=== PATIENT | female | born 1965 | race African-American/Black ===

== ENCOUNTER → 2021-03-27 02:26 | Outpatient (CLI) | payer OTHER, SELFPAY ==
[2021-03-27 19:43] LABS: SARS-CoV-2 RNA PCR Negative
== END ==
PROVIDERS: PCP Family Medicine; Visit Provider Obstetrics & Gynecology
DX: Z01.812 Encounter for preprocedural laboratory examination (principal); Z20.822 Contact with and (suspected) exposure to COVID-19
CPT/HCPCS: C9803; U0003; U0005

== ENCOUNTER 2021-03-29 14:51 | Outpatient (CLI) | payer OTHER, SELFPAY ==
--- NOTE | 2021-03-29 14:30 | ECG_ITS ---
Measurements Intervals [place] Rate: 66 P: 53 NM: 115 QRS: 26 QRSD: 73 T: 20 QT: 368 QTc: 386 Interpretive Statements SINUS RHYTHM WITH SHORT NM INTERVAL BASELINE ARTIFACT- I, III, AVL BORDERLINE ECG Electronically Signed On 03-29-2021 18:49:30 CDT by Kashif Deluna D.O.
== END 2021-03-29 14:52 | disposition home or self-care (01) ==
PROVIDERS: PCP Family Medicine; Visit Provider Obstetrics & Gynecology
DX: Z01.818 Encounter for other preprocedural examination (principal); E78.5 Hyperlipidemia, unspecified
CPT/HCPCS: 93005

== ENCOUNTER 2021-03-30 01:22 | Day surgery (SDC) | payer OTHER, SELFPAY ==
[2021-03-19 10:17] VITALS: BMI 33.9
--- NOTE | 2021-03-29 10:10 | WPDANESEPPF ---
Anes - Initial Pre Proc Eval Procedure: Operation Date: 03/30/21 08:30 Proposed Procedures p Hysteroscopy Dilation and Curettage - Gina Navas MD Date/Time: 03/29/21 10:10 Surgeon: Gina Navas MD Pre Op Diagnosis: postmenopausal bleeding Patient Data Age: 56 Gender: F Height: 1.65 m Weight: 92.5 kg Allergies Allergy/AdvReac Type Severity Reaction Status Date / Time No Known Allergies Allergy Mild Verified 03/30/21 07:10 Home Medications Medication Instructions Recorded Confirmed Type L. acidophilus-L. rhamnosus 1 cap PO DAILY 03/19/21 03/30/21 History [Probiotic] atorvastatin 20 mg PO HS 03/19/21 03/30/21 History baricitinib [Olumiant] 2 mg PO DAILY 03/19/21 03/30/21 History biotin 400 mcg PO DAILY 03/19/21 03/30/21 History celecoxib 200 mg PO DAILY 03/19/21 03/30/21 History cholecalciferol (vitamin D3) 50 mcg PO DAILY 03/19/21 03/30/21 History [Vitamin D3] fexofenadine 180 mg PO DAILY 03/19/21 03/30/21 History folic acid 0.4 mg PO DAILY 03/19/21 03/30/21 History leflunomide 20 mg PO DAILY 03/19/21 03/30/21 History mv-mn-iron vco-HX-gntos7,6,9#3 1 cap PO DAILY 03/19/21 03/30/21 History [Women's Multi] oxybutynin chloride 5 mg PO BID 03/19/21 03/30/21 History propranolol 80 mg PO DAILY 03/19/21 03/30/21 History topiramate 100 mg PO HS 03/19/21 03/30/21 History vitamin P72-jqaif acid 1 tablet PO DAILY 03/19/21 03/30/21 History vitamin B6-vitamin E-magnesium 1 tablet PO DAILY 03/19/21 03/30/21 History Patient hx anesthesia problems: none Family hx anesthesia problems: none PMFSH Past Medical History Medical History (Updated 03/29/21 @ 10:12 by Oneal Leary MD) Depression Hypercholesterolemia Migraine Obesity CONRADO on CPAP Osteoarthritis Rheumatoid arthritis Social History Social History Smoking status: Former smoker Additional smoking assessment comments: ON OCCASION WHEN DRINKING IN PAST MANY YRS AGO Alcohol intake: never Substance use: never Substance use type: does not use Living arrangements: alone Spiritual care concerns: No Anes - Eval Final PreProcedure Day of Procedure 03/29/21 10:10 Patient weight: obese Heart: regular rate and rhythm Lungs: clear to auscultation and normal air movement Airway: Mallampati scale class II Neurological: alert and oriented Last oral intake: >/= 8 hours ASA classification: III Emergent: no Anesthetic plan: proceed Anesthesia type and monitoring: general GIVS and LMA Informed Consent: The patient's anesthetic plan and its attendant risks and benefits were discussed with the patient/family/POA. Questions were solicited and answers provided to the satisfaction of the patient/family/POA.
[2021-03-30] MEDS: LACTATED RINGERS 1,000 ML 30 ML IV CONT (06:55)
[2021-03-30] MEDS: ACETAMINOPHEN 500 MG TABLET 1000 MG PO (06:57)
--- NOTE | 2021-03-30 07:11 | WPDHPUPDATE1 ---
History and Physical Update Update Date/Time: 03/30/21 07:11 History and Physical has been reviewed, including an updated exam of the patient. There are NO changes in the patient's condition. Risks, benefits, and alternatives have been discussed and questions answered. Patient agrees to proceed with procedure.
[2021-03-30 07:19] VITALS: BP 123/77; PULSE 63; RESP 18; TEMP 35.9; O2SAT 100
[2021-03-30 09:17] VITALS: BP 121/80; PULSE 90; RESP 12; O2SAT 100
--- NOTE | 2021-03-30 09:33 | PM.PROC ---
Procedure Note - Detailed Date of procedure: 03/30/21 Pre-op diagnosis: postmenopausal bleeding Procedure performed: Diagnostic hysteroscopy Description of procedure: Patient was taken the operating room. She has prepped and draped in the dorsal lithotomy position. A speculum was placed in the vagina. Cervix grasped with a tenaculum. The hysteroscope was inserted. Attempted to find a open intrauterine space. There was dense scar tissue throughout the uterus. The length the uterus was a fully scarred endometrial cavity. Hysteroscope was withdrawn. There were no clear areas of normal endometrium. The tenaculum was removed. The speculum was removed. The patient tolerated the procedure well. She was taken cover room stable condition. Sponge lap needle counts were correct x2. Anesthesia: MAC Surgeon: Gina Navas MD Estimated blood loss (mL): 5 Drains: No Packing: No Pathology: none sent Complications: No immediate complications Condition: stable Findings: Normal-appearing vulva, vagina, and cervix. The endocervix appeared normal. The endometrium was fully scarred and obliterated.
[2021-03-30 09:40] VITALS: BP 136/74; PULSE 69; RESP 16; O2SAT 97
[2021-03-30] MEDS: oxyCODONE HCL (*CRX) 5 MG TAB IR PO (09:55)
[2021-03-30 10:00] VITALS: BP 139/76; PULSE 64; RESP 16
[2021-03-30 10:10] VITALS: BP 125/86; PULSE 60; RESP 16
== END 2021-03-30 10:50 | disposition home or self-care (01) ==
PROVIDERS: PCP Family Medicine; Visit Provider Obstetrics & Gynecology
PROC: 0U5B8ZZ Destruction of Endometrium, Via Natural or Artificial Opening Endoscopic (ICD-10-PCS; CPT 58563; principal; 2021-03-30 08:30)
DX: N95.0 Postmenopausal bleeding (principal); E78.00 Pure hypercholesterolemia, unspecified; G47.33 Obstructive sleep apnea (adult) (pediatric); M06.9 Rheumatoid arthritis, unspecified; M19.90 Unspecified osteoarthritis, unspecified site; F32.9 Major depressive disorder, single episode, unspecified; E66.9 Obesity, unspecified; Z68.34 Body mass index [BMI] 34.0-34.9, adult
CPT/HCPCS: 58555; A9270; J2250; J2704; J3010; J7030; J7120

== ENCOUNTER 2021-04-13 10:33 | Outpatient (CLI) | payer OTHER, SELFPAY ==
--- NOTE | ~2021-04-13 | MM_ITS ---
EXAMINATION: MM screening [facility] BI w abdi HISTORY: Screening TECHNIQUE: Craniocaudal and mediolateral oblique 3-D tomosynthesis images were obtained and synthetic 2-D images were generated. CAD analysis was submitted and interpreted. COMPARISON: No prior mammogram is available for comparison at this institution. BREAST PARENCHYMAL COMPOSITION: Breast composed of scattered areas of fibroglandular density. FINDINGS: There are multiple masses of the right breast including the upper outer quadrant in the low er inner quadrant as well as the left breast in the upper outer quadrant. IMPRESSION: 1. Bilateral breast masses. 2. Comparison to prior outside mammograms recommended to assess stability. BI-RADS Category 0: Incomplete: Needs additional imaging evaluation. Reviewed, dictated and finalized at location A.
== END 2021-04-13 10:34 | disposition home or self-care (01) ==
PROVIDERS: PCP Family Medicine; Visit Provider Nurse Practitioner Obstetrics & Gynecology
DX: Z12.31 Encounter for screening mammogram for malignant neoplasm of breast (principal)
CPT/HCPCS: 77063; 77067

== ENCOUNTER 2022-11-17 17:33 | Outpatient (CLI) | payer MEDICARE, MEDICAID, SELFPAY ==
--- NOTE | ~2022-11-17 | MM_ITS ---
EXAMINATION: MM screening [facility] BI w abdi HISTORY: Screening mammogram, family history of breast cancer in her mother. TECHNIQUE: Craniocaudal and mediolateral oblique 3-D tomosynthesis images were obtained and synthetic 2-D images were generated. CAD analysis was submitted and interpreted. COMPARISON: 04/13/2021, 10/24/2017 BREAST PARENCHYMAL COMPOSITION: There are scattered areas of fibroglandular density. FINDINGS: Again noted are bilateral breast masses which are stable to decreased in size 2017 comparis on. No suspicious mass, calcification, or architectural distortion are identified in either breast to suggest malignancy. There has been no suspicious interval change. IMPRESSION: 1. No mammographic evidence of malignancy. 2. Recommend routine screening mammography in one year. BI-RADS Category 2: Benign finding(s). Reviewed, dictated and finalized at location A. E [employer]
== END 2022-11-17 17:34 | disposition home or self-care (01) ==
PROVIDERS: PCP Family Medicine; Visit Provider Nurse Practitioner Obstetrics & Gynecology
DX: Z12.31 Encounter for screening mammogram for malignant neoplasm of breast (principal)
CPT/HCPCS: 77063; 77067

== ENCOUNTER 2024-03-21 13:25 | Outpatient (CLI) | payer MEDICARE, SELFPAY ==
--- NOTE | ~2024-03-21 | MM_ITS ---
EXAMINATION: MM screening [facility] BI w abdi HISTORY: Screening mammogram TECHNIQUE: Craniocaudal and mediolateral oblique 3-D tomosynthesis images were obtained and synthetic 2-D images were generated. CAD analysis was submitted and interpreted. COMPARISON: 11/17/2022, 04/13/2021 bilateral screening mammogram examinations BREAST PARENCHYMAL COMPOSITION: There are scattered areas of fibroglandular density. FINDINGS: Stable occasional bilateral circumscribed breast masses. There is no evidence of suspicious mass, calcification, or architectural distortion to suggest malignancy in either breast. There has b een no suspicious interval change. IMPRESSION: 1. No mammographic evidence of malignancy. 2. Recommend routine screening mammography in one year. BI-RADS Category 2: Benign finding(s). Reviewed, dictated and finalized at location B.
== END 2024-03-21 13:26 | disposition home or self-care (01) ==
PROVIDERS: PCP Family Medicine; Visit Provider Nurse Practitioner Obstetrics & Gynecology
DX: Z12.31 Encounter for screening mammogram for malignant neoplasm of breast (principal)
CPT/HCPCS: 77063; 77067

== ENCOUNTER 2025-04-10 15:35 | Outpatient (CLI) | payer MEDICARE, SELFPAY ==
--- NOTE | ~2025-04-10 | MM_ITS ---
EXAMINATION: MM screening silverio BI w abdi HISTORY: Screening TECHNIQUE: Craniocaudal and mediolateral oblique 3-D tomosynthesis images were obtained and synthetic 2-D images were generated. CAD analysis was submitted and interpreted. COMPARISON: Comparison to multiple prior studies sequentially, with oldest reviewed study dated 12/2016. BREAST PARENCHYMAL COMPOSITION: Not dense: There are scattered areas of fibroglandular density. FINDINGS: There is no evidence of suspicious mass, calcification, or architectural distortion to sugg est malignancy in either breast. There has been no suspicious interval change. IMPRESSION: 1. No mammographic evidence of malignancy. 2. Recommend routine screening mammography in one year. BI-RADS Category 1: Negative Reviewed, dictated and finalized at location A.
--- OUTSIDE RECORDS SUMMARY | 2025-04-10 15:41 | XMS_ITS | Data Portability ---
Author Organization [place] [facility] [employer], Main Office Address [address] [place] [address] Assessment Encounter Date Assessment Date Assessment LastModified by Organization Details LastModified Time 03/20/2024 03/20/2024 mammogram tomorrow had bone marrow biopsy 03/15/24 considering stimulator for back [email or web address] Not available 03/20/2024 12:25:58 Plan of Treatment Reminders Order Date Submit Date Provider Last Modified By Organization Details Last Modified Time Details Appointments None recorded. Lab hepatic function panel, serum 2023 024 [facility] (Lab), [address] [place], [address], 18:44:44 Referral None recorded. Procedures colonoscopy screening (PROC) - *Please call pt to schedule* 2023 024 [email or web address] 256 [facility] [place] - Gastroenterol ogy, [address] [facility], [facility] [address], [address], 4 09:37:06 Surgeries None recorded. Imaging DEXA - *Please call pt to schedule* 2023 [facility] [address] [place] [address] Radiology-Dennise kristin, [address] [place], [address], 4 09:01:11 Medication Orders Zepbound 2.5 mg/0.5 mL subcutaneou s pen injector 2023 024 [facility], [address] [place] [address] 2011, [place], [address], 14:50:25 Patient TargetsNo targets recorded. Patient Instructions Encounter Date Encounter Id Patient Instructions Last Modified By Organization Details Last Modified Time 03/20/[id number] [facility] Plan and Screening Recommendations Advance Directives - Do you have one? Advance Directives - Do we have your advance directive on file in your health record? Primary Prevention/Interven tion (prevents or decreases the chance of common diseases from occurring) Smoking Risk: Alcohol Misuse Screening: Weight: Physical activity: Nutrition: Fall Risk (screened today): Vaccines Pneumococcal: Influenza: Your next one in the fall of this year Chronic Disease Risks Stroke: Active diagnosis, Continue current treatment plan Heart Attack: Active diagnosis, Continue current treatment plan Clogging of the Arteries: Active diagnosis, Continue current treatment plan Diabetes: Active diagnosis, Continue current treatment plan Secondary Prevention/Interven tion (detects treatable diseases before they may cause symptoms, disability, or ) Breast Cancer Screening with mammogram: Cervical/Uterine/Ov mayank Cancer Screening: Osteoporosis Screening: Date Screening Last Performed: Colon Cancer Screening: Date Screening Last Performed: Eye Disease Screening: Ordered Recommended today Recommended today, but you have declined No Eye exam necessary Your next exam in: Dementia Risk: Depression Screening: Active diagnosis, Continue current treatment plan [id number] Not available 03/31/2024 12:44:15 Reason for Referral None Reported. Results Created Date Observation Date Name Description Value Unit Range Abnormal Flag Note LastModifiedBy Organization Detail LastModifiedTime 03/21/20 24 03/21/2024 MAMMO , scree devaughn, digit al, bilat eral No observ ation record ed. [email or web address] [address], [place], [address], 03/30/2024 19:53:30 Result Notes None recorded. Problems Name Problem SNOMED Code Status Onset Date Resolution Date Notes Provider Name and Address Organization Details Recorded Time Deviated nasal septum 618984065 Active 2021 Not Available [facility] 3 19:45:18 Neuralgia 63167829 Active 2019 Not Available [facility] 3 19:45:18 Localized, primary osteoarthriti s of the hand 640627235 Active Not Available [facility] 3 19:45:18 Fibromyalgia 407312326 Active 2019 Not Available [facility] 3 19:45:18 Congenital pes planus 30968467 Active 2019 Not Available [facility] 3 19:45:18 Headache 73477152 Active 2019 Not Available [facility] 3 19:45:18 Paresthesia of foot 692850961 Active 2020 Not Available [facility] 3 19:45:18 Localized, primary osteoarthriti s of the wrist 850459878 Active Not Available [facility] 3 19:45:18 Chronic maxillary sinusitis 91188083 Active 2021 Not Available [facility] 3 19:45:18 Migraine 56763995 Active 2017 Not Available [facility] 3 19:45:18 Vertigo 534598929 Active 2021 Not Available [facility] 3 19:45:19 Chronic sinusitis 75346082 Active 2021 Not Available [facility] 3 19:45:19 Onychomycosis of toenails 064011434 Active 2019 Not Available [facility] 3 19:45:19 Chronic frontal sinusitis 10680498 Active 2021 Not Available [facility] 3 19:45:19 Rheumatoid arthritis 39100524 Active 2019 Not Available [facility] 3 19:45:19 Chronic ethmoidal sinusitis 63153619 Active 2021 Not Available [facility] 3 19:45:19 Posterior rhinorrhea 04518522 Active 2021 Not Available [facility] 3 19:45:19 Candidiasis of mouth 82734715 Active 2021 Not Available [facility] 3 19:45:19 Essential hypertension 91677859 Active 2022 Ethel Pinedo MD [address], [address], [place], [address] , [facility] [place] [facility] 3 12:52:35 Fatigue 36767393 Active 2022 Ethel Pinedo MD [address], [address], [place], [address] , [facility] [place] [facility] 3 12:52:41 Hyperlipidemi a 27653015 Active 2022 Ethel Pinedo MD [address], [address], [place], [address] , [facility] [place] [facility] 3 12:55:27 Serum creatinine above reference range 951083581 Active 2022 Ethel Pinedo MD [address], [address], [place], [address] , [facility] [place] [facility] 3 12:29:02 Thyroid function tests abnormal 584066650 Active 2022 Ethel Pinedo MD [address], [address], [place], [address] , [facility] [place] [facility] 3 12:29:10 Primary fibromyalgia syndrome 34835769 Active 2022 Ethel Pinedo MD [address], [address], [place], [address] , [facility] [place] [facility] 3 12:31:28 Hyperthyroidi sm 51858542 Active 2022 Ethel Pinedo MD [address], [address], [place], [address] , [facility] [place] [facility] 3 15:55:20 Psoriasis 6571286 Active 2022 Ethel Pinedo MD [address], [address], [place], [address] , [place] [facility] 3 12:42:43 Serum iron above reference range 105558137 Active 2022 Ethel Pinedo MD [address], [address], [place], [address] , [facility] 3 08:02:19 Upper respiratory infection 23719238 Active 2022 GONZALO Gale [address], [address], [place], [address] , [facility] 3 13:42:30 Acute sinusitis 16368139 Active 2023 Ethel Pinedo MD [address], [address], [place], [address] , [facility] 4 11:36:38 Obstructive sleep apnea syndrome 62733788 Active 2023 Ethel Pinedo MD [address], [address], [place], [address] , [facility] 4 12:16:13 Monoclonal gammopathy of uncertain significance 397163605 Active 2023 Ethel Pinedo MD [address], [address], [place], [address] , [facility] 4 12:25:16 Abdominal pain 95351406 Active 2023 KO Orellana [address], [place] [address], [place], [address] , [facility] 4 16:11:00 Notes:hepatitis C Problem Notes None recorded. Procedures Surgical History Date Name Laterality Status Provider Name and Address Organization Details Recorded Time 03/20/20 24 Medicare Wellness CPT Code, subsequent completed Ethel Pinedo MD [address], [address], [place], [address], [facility] 03/20/2024 12:32:04 02/29/20 22 ENDOSCOPY, NASAL/SINUS, WITH FRONTAL SINUS EXPLORATION (SURG) completed Not Available [facility] 01/11/2023 19:46:22 Imaging Results None recorded. Procedure Notes None recorded. Medical Equipment None Reported. Allergies No known drug allergies Medications Name Sig Start Date Stop Date Status Note LastModified by Organization Details LastModified Time cyclobenzap rine 10 mg tablet TK 1 T PO Q 8 H 04/06 completed Not Available Not Available Not Available amoxicillin 500 mg capsule 11/26 completed Not Available Not Available Not Available furosemide 40 mg tablet TAKE 1 OR 2 TABLETS BY MOUTH EVERY DAY NEEDED FOR EDEMA 11/23 completed Not Available Not Available Not Available betamethaso ne valerate 0.1 % topical ointment APPLY TO AFFECTED AREA TWICE A DAY active Not Available Not Available No t Available atorvastati n 80 mg tablet Take 1 tablet by mouth every night at bedtime. 2024 active Not Available Not Available Not Avai lable nystatin 100,000 unit/mL oral suspension active Not Available Not Available N ot Available prednisone 10 mg tablet TAKE 4 TABS DAILY X 5 DAYS, DECREASE BY 1 TABLET EVERY 5 DAYS, UNTIL DAY 21, WHEN YOU TAKE 1/2 TAB 06/14 completed Not Available Not Available Not Available propranolol 80 mg tablet 1 po qday 2024 active Not Available Not Available Not Avai lable paroxetine 10 mg tablet TAKE 1 TABLET BY MOUTH EVERY DAY 11/23 completed Not Available Not Available Not Available atorvastati n 20 mg tablet TAKE 1 TABLET BY MOUTH AT BEDTIME 11/26 completed Not Available Not Available Not Available sulfasalazi ne 500 mg tablet 06/14 completed Not Available Not Available Not Available azithromyci n 250 mg tablet TAKE 2 TABLETS BY MOUTH TODAY, THEN TAKE 1 TABLET DAILY FOR 4 DAYS DIRECTED active Not Available Not Available No t Available fluconazole 150 mg tablet TAKE 1 TABLET BY MOUTH EVERY DAY FOR 4 DAYS 11/15 completed Not Available Not Available Not Available benzonatate 200 mg capsule Take 1 capsule 3 times a day by oral route as needed. 08/22 completed Not Available Not Available Not Available sumatriptan 100 mg tablet TAKE 1/2 (ONE HALF) TO 1 TABLET BY MOUTH NEEDED FOR MIGRAINE MAX 1 PER 24 HRS active Not Available Not Available No t Available hydrocodone 5 mg-acetamin ophen 325 mg tablet TAKE 1 TABLET BY MOUTH EVERY 6 HOURS NEEDED FOR PAIN 11/26 completed Not Available Not Available Not Available meloxicam 15 mg tablet 06/14 completed Not Available Not Available Not Available metronidazo le 0.75 % (37.5 mg/5 gram) vaginal gel 09/14 completed Not Available Not Available Not Available ondansetron HCl 4 mg tablet 11/15 completed Not Available Not Available Not Available prednisone 20 mg tablet TAKE 2 TABLETS BY MOUTH EVERY DAY FOR 5 DAYS active Not Available Not Available No t Available dexamethaso ne 6 mg tablet active Not Available Not Available Not Available prednisone 5 mg tablet Take 1 tablet every day by oral route. active Not Available Not Available No t Available penicillin V potassium 500 mg tablet TAKE 1 TABLET BY MOUTH 4 TIMES A DAY FOR 7 DAYS. 09/11 completed Not Available Not Available Not Available leflunomide 10 mg tablet TAKE 1 TABLET BY MOUTH EVERY DAY active Not Available Not Available No t Available topiramate 25 mg tablet Take by oral route for 30 days. 04/27 completed Not Available Not Available Not Available metronidazo le 500 mg tablet TAKE 4 TABLETS BY MOUTH AT ONE TIME 12/10 completed Not Available Not Available Not Available hydroxyzine HCl 50 mg tablet TAKE 1 TABLET BY MOUTH THREE TIMES A DAY 11/26 completed Not Available Not Available Not Available phentermine 37.5 mg tablet TAKE 1 TABLET BY MOUTH EVERY DAY IN THE MORNING 2022 active Not Available Not Available Not Avai lable acetaminoph en 300 mg-codeine 30 mg tablet 03/09 completed Not Available Not Available Not Available fexofenadin e 180 mg tablet 1 po qday prn allergies 2022 active Not Available Not Available Not Avai lable ciprofloxac in 500 mg tablet Take 1 tablet every 12 hours by oral route for 5 days. 06/14 completed Not Available Not Available Not Available sulfamethox azole 800 mg-trimetho prim 160 mg tablet TAKE 1 TABLET BY MOUTH EVERY 12 HOURS 12/10 completed Not Available Not Available Not Available aspirin 81 mg tablet,robb yed release TAKE 1 TABLET BY MOUTH EVERY DAY 11/15 completed Not Available Not Available Not Available leflunomide 20 mg tablet 1 po qday 2022 active Not Available Not Available Not Avai lable tramadol 50 mg tablet Take 1 tablet every 6-8 hours by oral route as needed for 7 days. active Not Available Not Available No t Available acetaminoph en 500 mg tablet active Not Available Not Available Not Available triamcinolo ne acetonide 0.1 % topical cream APPLY THIN COAT TO AFFECTED AREA TWICE A DAY active Not Available Not Available No t Available ketorolac 30 mg/mL (1 mL) injection solution Inject 1 mL by intramusc ular route. 11/26 completed Not Available Not Available Not Available butalbital- acetaminoph en-caffeine 50 mg-325 mg-40 mg tablet TK 1 T PO Q 12 H PRN 11/27 completed Not Available Not Available Not Available ketorolac 10 mg tablet TAKE 1 TABLET BY MOUTH EVERY 6 HOURS NEEDED. DO NOT EXCEED MORE THAN 4 TABLETS IN 24 HOURS active Not Available Not Available No t Available pantoprazol e 20 mg tablet,robb yed release active Not Available Not Available Not Available meloxicam 7.5 mg tablet Take 1 tablet twice a day by oral route. 06/14 completed Not Available Not Available Not Available oxycodone-a cetaminophe n 5 mg-325 mg tablet Take 1 tablet every 6 hours by oral route as needed. active Not Available Not Available No t Available hydrocortis one 2.5 % topical cream with perineal applicator APPLY A THIN LAYER TO THE AFFECTED AREA(S) BY TOPICAL ROUTE 2-4 TIMESDAIL Y active Not Available Not Available No t Available terbinafine HCl 250 mg tablet TAKE 1 TABLET BY MOUTH DAILY FOR 30 DAYS active Not Available Not Available No t Available amoxicillin 875 mg tablet TAKE 1 TABLET BY MOUTH EVERY 12 HOURS FOR 7 DAYS 07/12 completed Not Available Not Available Not Available famotidine 20 mg tablet TAKE 1 TABLET BY MOUTH EVERY 12 HOURS 11/26 completed Not Available Not Available Not Available methocarbam ol 750 mg tablet Take 1 tablet 3 times a day by oral route. active Not Available Not Available No t Available methotrexat e sodium 2.5 mg tablet active Not Available Not Available Not Available dicyclomine 20 mg tablet 11/15 completed Not Available Not Available Not Available meclizine 25 mg tablet 1 po tid prn dizziness 2022 active Not Available Not Available Not Avai lable benzonatate 100 mg capsule TAKE 1 CAPSULE (100 MG TOTAL) BY MOUTH EVERY 8 (EIGHT) HOURS active Not Available Not Available No t Available triamcinolo ne acetonide 40 mg/mL suspension for injection Take 40 mg by injection route for 1 day. 11/26 completed Not Available Not Available Not Available hydrocodone 7.5 mg-acetamin ophen 325 mg tablet TAKE 1 TABLET BY MOUTH EVERY 8 TO 12 HOURS NEEDED active Not Available Not Available No t Available prednisone 2.5 mg tablet active Not Available Not Available Not Available dexamethaso ne 4 mg tablet take 5 tabs day one, 4 tabs day two, 3 tabs day three, 2 tabs day four, 1 tab day five 03/08 completed Not Available Not Available Not Available propranolol ER 80 mg capsule,24 hr,extended release TAKE 1 CAPSULE BY MOUTH EVERY DAY active Not Available Not Available No t Available progesteron e micronized 200 mg capsule active Not Available Not Available Not Available oxybutynin chloride ER 5 mg tablet,exte nded release 24 hr TAKE 2 TABLETS BY MOUTH EVERY DAY 2023 active Not Available Not Available Not Avai lable gabapentin 300 mg capsule 08/22 completed Not Available Not Available Not Available folic acid 1 mg tablet active Not Available Not Available Not Available codeine 10 mg-guaifene sin 100 mg/5 mL oral liquid 10 ml po qhs active Not Available Not Available No t Available topiramate 200 mg tablet TAKE 1 TABLET BY MOUTH EVERY DAY IN THE EVENING 08/12 completed Not Available Not Available Not Available furosemide 20 mg tablet TAKE 1 TABLET BY MOUTH EVERY DAY NEEDED FOR EDEMA (SWELLING ) 06/06 completed Not Available Not Available Not Available azelastine 137 mcg (0.1 %) nasal spray SPRAY 2 SPRAYS BY INTRANASA L ROUTE TWICE A DAY active Not Available Not Available No t Available hydroxychlo roquine 200 mg tablet TAKE 1 TABLET BY MOUTH TWICE A DAY WITH FOOD active Not Available Not Available No t Available polyethylen e glycol 3350 17 gram/dose oral powder DISSOLVE 1 CAPFUL IN LIQUID EVERY DAY AND CONSUME CONTENTS NEEDED FOR CONSTIPAT ION active Not Available Not Available No t Available levofloxaci n 500 mg tablet Take 1 tablet every 24 hours by oral route for 10 days. active Not Available Not Available No t Available levofloxaci n 750 mg tablet Take 1 tablet every day by oral route for 7 days. active Not Available Not Available No t Available methylpredn isolone 4 mg tablets in a dose pack TAKE 6 TABLETS ON DAY 1 DIRECTED ON PACKAGE AND DECREASE BY 1 TAB EACH DAY FOR A TOTAL OF 6 DAYS 03/12 completed Not Available Not Available Not Available albuterol sulfate HFA 90 mcg/actuati on aerosol inhaler INHALE 2 PUFFS BY MOUTH EVERY 6 HOURS NEEDED FOR WHEEZING OR SHORTNESS OF BREATH active Not Available Not Available No t Available ketoconazol e 2 % topical cream APPLY TO THE AFFECTED AREA(S) nails BY TOPICAL ROUTE ONCE DAILY for 5 weeks active Not Available Not Available No t Available oxybutynin chloride 5 mg tablet 2 po qday 2024 active Not Available Not Available Not Avai lable ondansetron 4 mg disintegrat ing tablet DISSOLVE 1 TABLET IN MOUTH EVERY 8 HOURS NEEDED FOR NAUSEA OR VOMITING FOR UP TO 3 DAYS. active Not Available Not Available No t Available cefdinir 300 mg capsule TAKE 1 CAPSULE BY MOUTH EVERY 12 HOURS FOR 10 DAYS 07/12 completed Not Available Not Available Not Available topiramate 100 mg tablet 1 po qhs 2024 active Not Available Not Available Not Avai lable fluticasone propionate 50 mcg/actuati on nasal spray,suspe nsion SPRAY 1 SPRAY INTO EACH NOSTRIL DAILY active Not Available Not Available No t Available doxycycline hyclate 100 mg tablet Take 1 tablet twice a day by oral route for 7 days. active Not Available Not Available No t Available naproxen 500 mg tablet TAKE 1 TABLET BY MOUTH TWICE A DAY NEEDED FOR PAIN 11/27 completed Not Available Not Available Not Available progesteron e micronized 100 mg capsule Take 1 capsule every day by oral route for 90 days. 2024 active Not Available Not Available Not Avai lable amoxicillin 875 mg-potassiu m clavulanate 125 mg tablet TAKE 1 TABLET BY MOUTH EVERY 12 HOURS FOR 10 DAYS active Not Available Not Available No t Available celecoxib 400 mg capsule TAKE 1 CAPSULE TWICE A DAY AFTER MEALS 12/21 completed Not Available Not Available Not Available ezetimibe 10 mg tablet 1 po q day 2024 active Not Available Not Available Not Avai lable cyclobenzap rine 5 mg tablet TAKE 1-2 TABLETS EVERY 8 HOURS NEEDED FOR MUSCLE PAIN 04/27 completed Not Available Not Available Not Available nitrofurant oin monohydrate /macrocryst als 100 mg capsule TAKE 1 CAPSULE BY MOUTH TWICE A DAY FOR 7 DAYS active Not Available Not Available No t Available duloxetine 30 mg capsule,del ayed release TAKE 1 CAPSULE BY MOUTH EVERY DAY 01/09 completed Not Available Not Available Not Available duloxetine 60 mg capsule,del ayed release Take 1 capsule every 12 hours by oral route for 30 days. 2024 active Not Available Not Available Not Avai lable pregabalin 25 mg capsule TAKE 1 CAPSULE BY MOUTH THREE TIMES A DAY active Not Available Not Available No t Available pregabalin 75 mg capsule TAKE 1 CAPSULE BY MOUTH TWICE A DAY 08/22 completed Not Available Not Available Not Available pregabalin 150 mg capsule TAKE 1 CAPSULE BY MOUTH TWICE A DAY 11/15 completed Not Available Not Available Not Available Enbrel SureClick 50 mg/mL (1 mL) subcutaneou s pen injector INJECT 1 PEN SUBCUTANE OUSLY ONCE A WEEK 11/15 completed Not Available Not Available Not Available diclofenac 1 % topical gel APPLY 4 G TOPICALLY 3 (THREE) TIMES A DAY active Not Available Not Available No t Available omeg-3-epa- dha-fish oil-flax-E 2017 active Not Available Not Available Not Avai lable ketorolac 30 mg/mL injection solution 1 ml IM x 1 11/26 completed Not Available Not Available Not Available potassium chloride ER 20 mEq tablet,exte nded release TAKE 1 TABLET BY MOUTH EVERY DAY dx e87.6 11/23 completed Not Available Not Available Not Available Humira(CF) Pen 40 mg/0.4 mL subcutaneou s kit 09/11 completed Not Available Not Available Not Available Olumiant 2 mg tablet active Not Available Not Available No t Available Rinvoq 15 mg tablet,exte nded release Take 1 tablet every day by oral route. 11/26 completed Not Available Not Available Not Available Rinvoq active Not Available Not Availa ble Not Available Rybelsus 3 mg tablet Take 1 tablet every day by oral route. 04/27 completed Not Available Not Available Not Available Nexlizet 180 mg-10 mg tablet Take 1 tablet every day by oral route. 2020 active Not Available Not Available Not Avai lable Wegovy 0.25 mg/0.5 mL subcutaneou s pen injector 0.25 sc qweek 09/12 completed Not Available Not Available Not Available Mounjaro 2.5 mg/0.5 mL subcutaneou s pen injector 0.25 mg sc qweek 08/22 completed Not Available Not Available Not Available Ozempic 0.25 mg or 0.5 mg (2 mg/3 mL) subcutaneou s pen injector Inject by subcutane ous route. active Not Available Not Available No t Available Zepbound 2.5 mg/0.5 mL subcutaneou s pen injector Inject 2.5 mg every week by subcutane ous route. 2023 active Not Available Not Available Not Avai lable Vitals Date Recorded Body height Body mass index (BMI) Body weight Body temperature Heart rate Oxygen saturation Oxygen saturation in Arterial blood by Pulse oximetry Systolic blood pressure Diastolic blood pressure Provider Name and Address Organization Details Last Updated DateTime 4 165.1 cm 37.9 kg/m2 831875. 06 g 97.3 [degF] 87 /min 94 % 94 % 126 mm[Hg] 80 mm[Hg] Annabella June RN [facility] 4 12:08:40 Date Recorded Body height Body mass index (BMI) Body weight Body temperature Heart rate Oxygen saturation Oxygen saturation in Arterial blood by Pulse oximetry Systolic blood pressure Diastolic blood pressure Provider Name and Address Organization Details Last Updated DateTime 4 165.1 cm 37.9 kg/m2 688526. 06 g 97.3 [degF] 86 /min 96 % 96 % 122 mm[Hg] 78 mm[Hg] Annabella June RN [facility] 4 12:05:40 Date Recorded Body height Body mass index (BMI) Body weight Body temperature Heart rate Systolic blood pressure Diastolic blood pressure Provider Name and Address Organization Details Last Updated DateTime 4 165.1 cm 35.8 kg/m2 83062.3 6 g 96.3 [degF] 72 /min 132 mm[Hg] 86 mm[Hg] Sol Rojas RN [facility] 4 14:31:48 Date Recorded Body height Body mass index (BMI) Body weight Body temperature Heart rate Systolic blood pressure Diastolic blood pressure Provider Name and Address Organization Details Last Updated DateTime 4 165.1 cm 35.4 kg/m2 78426.1 7 g 96.5 [degF] 74 /min 128 mm[Hg] 84 mm[Hg] Sol Rojas RN [place] [facility] 4 16:04:54 Social History Question Answer Notes LastModified by [employer] Details LastModified Time Tobacco Smoking Status Never Smoker Not Available [facility] 01/11/2023 19:44:42 What Is Your Level Of Caffeine Consumption? None [id number] Information not available 01/11/2023 In The 14 Days Before Symptom Onset, Have You Had Close Contact With A Laboratory-confirm ed COVID-19 While That Case Was Ill? No [id number] Information not available 01/11/2023 In The 14 Days Before Symptom Onset, Have You Had Close Contact With A Person Who Is Under Investigation For COVID-19 While That Person Was Ill? No [id number] Information not available 01/11/2023 What Type Of Diet Are You Following? REGULAR [id number] Information not available 01/11/2023 Do You Use Sunscreen Routinely? No [id number] Information not available 01/11/2023 Has Tobacco Cessation Counseling Been Provided? No [email or web address] Information not available 03/08/2023 Have You Recently Traveled Abroad? No [id number] Information not available 01/11/2023 Do You Have Any Dietary Restrictions? No [id number] Information not available 01/11/2023 Sex: Unknown Functional Status Question Answer Note LastModified by [employer] Details LastModified Time Do you use any illicit or recreational drugs? No [id number] Information not available 01/11/2023 Do you or have you ever used any other forms of tobacco or nicotine? No [email or web address] Information not available 03/08/2023 What is your level of alcohol consumption? None [id number] Information not available 01/11/2023 What is your exercise level? None [id number] Information not available 01/11/2023 Mental Status None recorded. Family History Relationship Description Onset Age of this Age Resolved Age Notes LastModified by Organization Details LastModified Time Father No current problems or disability [id number] Not available 01/11/2023 19:44:43 Mother No current problems or disability [id number] Not available 01/11/2023 19:44:43 Notes:cancer - mother and fa ther, blood clots - mother Medical History Condition Response BLINDNESS N RHEUMATIC FEVER N KIDNEY STONES N BLADDER PROBLEMS N MRSA N OTHER # 1 N POLIO N LUNG DISEASE/DISORDER N RADIATION / CHEMOTHERAPY N COPD N Other # 2 N BLOOD DISEASES N SURGERY N EAR OR HEARING PROBLEMS N MUMPS N FEMALE PROBLEMS / INFECTIONS N BOWEL PROBLEMS N DEPRESSION (INCLUDING POST ) N STROKE/TIA N THYROID DISEASE N ULCERS N BENIGN PROSTATIC HYPERPLASIA N MEASLES N CERVICALGIA N TB SKIN TEST N MYOCARDIAL INFARCTION N PARAPELGIA N OBESITY N GERD/NAUSEA N ANEURYSM N URINARY/BLADDER/KIDNEY PROBLEMS N CORONARY ARTERY DISEASE (CAD) N MENIERE'S DISEASE N ADDICTION CONCERNS N ENDOMETRIOSIS N USE OF BLOOD THINNERS N SKIN PROBLEMS N EMPHYSEMA N GASTROINTESTINAL DISORDER N MUSCLE,JOINT OR BONE PROBLEMS N GASTROINTESTINAL BLEEDING N BLOOD CLOTS N ASTHMA N CATARACTS N ERECTILE DYSFUNCTION N GI PROBLEMS N CHF N Low Testosterone N NEUROPATHY N INFERTILITY N AIDS/HIV N FRACTURES N CHEMOTHERAPY / RADIATION N VISION/EYE PROBLEMS N LIVER DISEASE N MALE HYPOGONADISM N HYPERTENSION N TOURETTE'S N ANXIETY DISORDER N BLOOD TRANSFUSION N ANEMIA/BLOOD DISORDER N CHRONIC EAR INFECTIONS N BRONCHITIS N TUBERCULOSIS N GLAUCOMA N FOOT PROBLEM N DIVERTICULITIS N SLEEP APNEA N CHICKENPOX N ALLERGIES/HAYFEVER N INFECTIOUS DISEASE N PROSTATE N HEART ARRHYTHMIA N INSOMNIA N HIGH CHOLESTEROL / HYPERLIPIDEMIA N EYE PROBLEMS N HYPERTHYROIDISM N EATING DISORDER N EDEMA N CHRONIC PAIN SYNDROME N CONSTIPATION N CAROTID BLOCKAGE N BACK / NECK PROBLEMS N HAVE YOU BEEN HOSPITALIZED OR SEEN IN [facility] IN THE PAST YEAR ? N ATHEROSCLEROSIS N BREAST PROBLEMS N DIALYSIS N ECZEMA N HISTORY WITH COMPLICATIONS WITH ANESTHES IA ? N FIBROMYALGIA N OSTEOPOROSIS N ARTHRITIS N NO SIGNIFICANT PAST MEDICAL HISTORY N APPENDICITIS N DIABETES, TYPE N BAD TEETH N HEARTBURN / REFLUX N ADD/ADHD N AUTISM SPECTRUM DISORDER (ASD) N HEPATITIS / LIVER DISEASE N PULMONARY DISEASE N GOUT N SLEEP DISORDER N ALZHEIMER'S DISEASE N PAIN N DEMENTIA N HERPES N SEIZURES/EPILEPSY N HEADACHES/MIGRAINES N VASCULAR DISEASE N PACEMAKER N DIZZINESS N HEART DISEASE/HEART PROBLEMS N KIDNEY DISEASE N SCARLET FEVER N MULTIPLE SCLEROSIS N DEVELOPMENTAL OR BEHAVIORAL DISORDERS N MENTAL DISORDER/ILLNESS N CANCER: SPECIFY N CARDIAC ARRHYTHMIA N PNEUMONIA N ATRIAL FIBRILLATION N Gall Stones N PULMONARY EMBOLISM N AUTOIMMUNE DISEASE N Gynecological HistoryNo gynecological history recorded. Obstetrics History GPAL:G 0 P 0 0 0 0 Immunizations Vaccine Type Date Status Note Provider Nam e and Address Organization Details Recorded Time COVID-19, mRNA, LNP-S, PF, 30 mcg/0.3 mL dose 2 completed Not Available [facility] 01/11/2023 19:46:19 COVID-19, mRNA, LNP-S, PF, 30 mcg/0.3 mL dose 1 completed Not Available [facility] 01/11/2023 19:46:19 COVID-19, mRNA, LNP-S, PF, 100 mcg/0.5mL dose or 50 mcg/0.25mL dose 1 completed Not Available [facility] 01/11/2023 19:46:19 COVID-19, mRNA, LNP-S, PF, 100 mcg/0.5mL dose or 50 mcg/0.25mL dose 1 completed Not Available [facility] 01/11/2023 19:46:19 Pneumococcal conjugate PCV 13 0 completed Not Available [facility] 01/11/2023 19:46:19 Influenza, split virus, quadrivalent, PF 2 completed Not Available [facility] 01/11/2023 19:46:19 Influenza, split virus, quadrivalent, PF 1 completed Not Available [facility] 01/11/2023 19:46:20 Influenza, split virus, quadrivalent, PF 0 completed Not Available [facility] 01/11/2023 19:46:20 Influenza, split virus, quadrivalent, PF 3 completed Annabella June RN null, [facility] [employer] 09/11/2023 15:32:44 Influenza, split virus, trivalent, PF 4 completed Sol Rojas RN null, [place] [employer] [facility] [employer] 09/12/2024 16:30:49 Past Encounters Encounter ID Performer Location Encounter Start Date Encounter Closed Date Diagnosis/Indication Diagnosis SNOMED-CT Code Diagnosis ICD10 Code Diagnosis Note [id number] Ethel Pinedo MD [facility] [place] [address] [place] [address] 02/22/2021 00:00:00 03/11/2021 15:22:19 [id number] Ethel Pinedo MD [facility] [place] [address] [place] [address] 03/22/2021 00:00:00 03/29/2021 14:10:42 [id number] Ethel Pinedo MD [facility] [place] [address] [place] [address] 06/14/2021 00:00:00 06/14/2021 09:17:36 [id number] Ethel Pinedo MD [facility] [place] [address] [place] [address] 08/03/2021 00:00:00 08/08/2021 20:18:48 [id number] GONZALO Gale [facility] [place] [address] [place] [address] 08/30/2021 00:00:00 08/30/2021 17:52:52 [id number] Ethel Pinedo MD [facility] [place] [address] [place] [address] 09/14/2021 00:00:00 09/14/2021 08:52:13 [id number] GONZALO Gale [facility] [place] [address] [place] [address] 09/28/2021 00:00:00 09/28/2021 10:57:49 [id number] Mathew Bustos DPM [facility] [place] [address] [address] 10/11/2021 00:00:00 10/11/2021 12:19:05 [id number] GONZALO Gale [facility] [place] [address] [facility] [address] [place] [address] 10/29/2021 00:00:00 10/29/2021 09:15:48 [id number] Ethel Pinedo MD [facility] [address] [place] [address] 11/16/2021 00:00:00 11/16/2021 17:42:15 [id number] [facility] [place] ic_Gateway _ATHENA_M IGRATION_ DEFAULT_1 _1 , 11/26/2021 00:00:00 11/26/2021 12:55:04 [id number] MD DL Barrett IGRATION_ DEFAULT_1 _1 , 12/17/2021 00:00:00 12/17/2021 10:08:51 [id number] Ethel Pinedo MD [facility] [address] [place] [address] 12/21/2021 00:00:00 12/21/2021 16:37:49 [id number] Mathew Bustos DPM [facility] [place] [address] [place] [address] 01/06/2022 00:00:00 01/06/2022 11:48:38 [id number] MD ANA Barrett[facility] [place] [address] [place] [address] 01/13/2022 00:00:00 01/13/2022 12:45:44 [id number] MD ANA Barrett_[facility] [place] [address] [place] [address] 03/10/2022 00:00:00 03/10/2022 12:40:48 [id number] Mathew Bustos DPM [facility] [place] [address] [place] [address] 03/10/2022 00:00:00 03/10/2022 11:09:20 [id number] MD ANA Daly[facility] [address] [address] 03/21/2022 00:00:00 03/21/2022 14:27:00 [id number] Mathew Bustos DPM [facility] [place] [address] [address] 03/24/2022 00:00:00 03/24/2022 12:18:54 [id number] Mitch Guillory MD [facility] [place] [address] [place] [address] 04/07/2022 00:00:00 04/07/2022 16:47:24 [id number] Ethel Pinedo MD [facility] [place] [address] [place] [address] 04/26/2022 00:00:00 05/11/2022 23:46:24 [id number] Mitch Guillory MD [facility] [place] [address] [place] [address] 05/24/2022 00:00:00 05/24/2022 15:20:11 [id number] GONZALO Gale [facility] [place] [address] [place] [address] 06/10/2022 00:00:00 06/10/2022 18:03:23 [id number] Ethel Pinedo MD [facility] [place] [address] [place] [address] 07/04/2022 00:00:00 07/05/2022 08:22:32 [id number] Ethel Pinedo MD [facility] [place] [address] [place] [address] 08/22/2022 00:00:00 09/06/2022 08:00:53 [id number] Mathew Bustos DPM [facility] [place] [address] [address] 08/25/2022 00:00:00 08/25/2022 14:38:16 [id number] Mathew Bustos DPM [facility] [place] [address] [place] [address] 10/25/2022 00:00:00 10/27/2022 08:46:21 [id number] Ethel Pinedo MD [facility] [place] [address] [facility] [address] [place] [address] 10/25/2022 00:00:00 10/25/2022 16:32:11 [id number] Ethel Pinedo MD [facility] [place] [address] [facility] 140 [place] [address] 11/15/2022 00:00:00 11/15/2022 08:32:46 [id number] Ethel Pinedo MD [facility] [place] [address] [facility] 140 [place] [address] 01/09/2023 00:00:00 01/09/2023 12:56:56 [id number] Mitch Guillory MD [facility] [place] [address] [place] [address] 02/02/2023 15:36:55 02/02/2023 16:15:55 Vertigo [id number] Ethel Pinedo MD [facility] [place] [address] [facility] 140 [place] [address] 02/06/2023 12:31:14 02/06/2023 13:10:11 Dietary management surveillance [id number] Z71.3 Essential hypertension 36361275 I10 Fatigue 80535076 R53.83 E55.9 D51.0 D50.9 R63.5 Hyperlipidemia 43495038 E78.5 Z79.899 [id number] Ethel Pinedo MD [facility] [place] [address] [facility] 140 [place] [address] 03/08/2023 12:03:52 03/08/2023 12:42:53 Serum creatinine above reference range 642437968 R79.89 Thyroid fu nction tests abnormal 495204504 R94.6 Primary fi bromyalgia syndrome 47025687 M79.7 [id number] Ethel Pinedo MD [address] [place] [address] 04/27/2023 11:54:48 04/27/2023 12:53:47 Serum creatinine above reference range 334746693 R79.89 Thyroid fu nction tests abnormal 478638654 R94.6 Dietary ma nagement surveillance 288379359 Z71.3 Renewal of prescription 263206426 Z76.0 [id number] Ethel Pinedo MD [address] [address] 07/27/2023 11:03:27 07/27/2023 16:01:58 Rheumatoid arthritis 06281403 M06.9 Hyperthyroidism 76369327 E05.90 [id number] Ethel Pinedo MD [address] [address] 09/11/2023 11:24:57 09/11/2023 11:52:38 Fatigue 40737665 R53.83 E55.9 D51.0 D50.9 R63.5 Hyperlipidemia 43919307 E78.5 Z79.899 Essential hypertension 97428292 I10 Hyperthyroidism 56496739 E05.90 Dietary ma nagement surveillance 493105831 Z71.3 [id number] Ethel Pinedo MD [address] [address] 12/11/2023 12:02:23 12/11/2023 12:33:35 [id number] Ethel Pinedo MD [address] [address] 03/20/2024 11:58:18 03/20/2024 12:34:32 Obstructive sleep apnea syndrome 90971908 G47.33 will get back on cpap machine Postmenopausal state 764 [address]17 Z78.0 Screening for malignant neoplasm of colon 572271864 Z12.11 Monoclonal gammopathy of uncertain significance 798340153 D47.2 bone marrow biopsy on 03/15/24 Dietary ma nagement surveillance 840319544 Z71.3 given sample of ozempic Adult heal th examination 155232277 Z00.00 Mammogram tomorrowco lonoscopy referral givenflu vaccine yearlyCovi d booster per cdc recommenda tionspneum ovax 23 at age 65prevnar 13 given 2020recomm end 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 [id number] GONZALO Bhagat [facility] Primary Care [facility] [place] [address] [facility] [address] [place] [address] 06/20/2024 15:08:15 06/20/2024 15:21:27 [id number] KO Orellana [facility] Primary Care [facility] [address] [facility] [address] [facility] [place] [address] 07/09/2024 14:19:53 07/09/2024 15:04:39 Dietary management surveillance 648100109 Z71.3 pt was given ozempic samples per this office and has lost 13 lbs since last visitanoth er ozempic sample giventrial zepbound 2.5mg [id number] KO Orellana [facility] Primary Care [facility] [place] [address] [facility] [address] [place] [address] 09/12/2024 15:52:12 09/12/2024 16:27:04 Abdominal pain 74661449 R10.9 went to 2x for abcominal painevalua irina in [facility], give PO antibiotic sf/u with rheumatolo gist and was told that liver enzymes were elevatedsy mptoms have since gotten a lot better Administra tion of influenza vaccine 70234491 Z23 Health Concerns Section Related Observation LastModified by Organization Detai ls LastModified Time None Recorded Concern Status LastModified by Organization Details LastModified Time None Recorded Advance Directives Directive None Recorded Payers Encounter Date Sequence Insurance Name Policy Number Policy Quick Covered Member ID Quick Member ID Guarantor Name 12/11/2023 2 [place] WHEN MED[place]ARE OR MEDICARE REPLACEMENT PRIMARY) Eddie Mccarty [id number] Eddie Mccarty 12/11/2023 1 [employer] (MEDICARE REPLACEMENT/AD VANTAGE - PPO) [id number] Adicia B McNeese [id number] Adicia B McNeese 03/20/2024 2 [place] MEDIC[place]PLACEMENT PRIMARY) Adicia McNeese [id number] Adicia B McNeese 03/20/2024 1 [employer] (MEDICARE REPLACEMENT/AD VANTAGE - PPO) [id number] Adicia B McNeese [id number] Adicia B McNeese 06/20/2024 2 [place] OR MEDICARE REPLACEMENT PRIMARY) Adicia McNeese [id number] Adicia B McNeese 06/20/2024 1 [employer] (MEDICARE REPLACEMENT/AD VANTAGE - PPO) [id number] Adicia B McNeese [id number] Adicia B McNeese 07/09/2024 2 [place] OR MEDICARE REPLACEMENT PRIMARY) Adicia McNeese [id number] Adicia B McNeese 07/09/2024 1 [employer] (MEDICARE REPLACEMENT/AD VANTAGE - PPO) [id number] Adicia B McNeese [id number] Adicia B McNeese 09/12/2024 2 [place] WHEN [place] OR MEDICARE REPLACEMENT PRIMARY) Adicia McNeese [id number] Adicia B McNeese 09/12/2024 1 [employer] (MEDICARE REPLACEMENT/AD VANTAGE - PPO) [id number] Adicia B McNeese [id number] Adicia B McNeese Notes Date Note Type Note Provider Name and Address Organization Details Recorded Time 03/20/2024 text/html she feels fatigued and gaining weight, no chest pain or sob Ethel Pinedo MD [address], [place], [address], [employer] 03/31/2024 12:44:43 07/09/2024 text/html pt is here for med f/u DIEGO Orellana-C [address], [place], [address], [employer] 07/09/2024 14:52:10 09/12/2024 text/html Pt is here for f/u DIEGO Orellana-Shawn [address] [address], [place], [address], [place] [facility] [employer] 09/12/2024 16:22:02 OBGyn Episode No OBEpisode recorded.
== END 2025-04-10 15:36 | disposition home or self-care (01) ==
LOC: ANHIMG 15:39
PROVIDERS: PCP Nurse Practitioner Family; Visit Provider Nurse Practitioner Obstetrics & Gynecology
DX: Z12.31 Encounter for screening mammogram for malignant neoplasm of breast (principal)
CPT/HCPCS: 77063; 77067